=== PATIENT | male | born 1995 | race Caucasian/White ===

== ENCOUNTER 2023-07-08 17:39 | Emergency (ER) | payer MEDICAID, BC ==
[~2023-07-08] VITALS: Ht 175.3 cm; Wt 91.0 kg
[2023-07-08 18:15] VITALS: BP 131/99; O2SAT 97
[2023-07-08] MEDS ORDERED: ACETAMINOPHEN 325MG TABLET PO ONE (22:00)
[2023-07-09] MEDS ORDERED: IBUP-1525 MT (00:07)
[2023-07-09] MEDS ORDERED: TOPUD MT (00:07)
[2023-07-09 00:20] VITALS: PULSE 94; RESP 18
[2023-07-09 00:21] VITALS: TEMP 98
[2023-07-09] MEDS ORDERED: ACETAMINOPHEN 325MG TABLET PO NR (00:30)
== END 2023-07-09 00:23 | disposition home or self-care (01) ==
LOC: ER 17:39
DX: R68.89 Other general symptoms and signs (principal); F32.9 Major depressive disorder, single episode, unspecified
CPT/HCPCS: 72040; 99283